=== PATIENT | female | born 1960 | race Caucasian/White ===

== ENCOUNTER 2017-05-30 08:42 | Emergency (ER) | payer OTHER ==
[~2017-05-30] VITALS: Ht 165.1 cm; Wt 86.2 kg
--- NOTE | 2017-05-30 08:42 | NUR ---
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 +NAUSEA. PLACED ON MONITOR. AWAITING MD ORDER
[2017-05-30] MEDS ORDERED: MECLIZINE HCL 25 MG TABLET ONE (09:08)
[2017-05-30] MEDS ORDERED: PROCHLORPERAZINE EDISYLATE 10 MG/2 ML VIAL ONE (09:13)
--- NOTE | 2017-05-30 09:20 | NUR ---
RAC #20 IV ACCESS BLOOD SAMPLE COLLECTED SENT TO LAB
[2017-05-30] MEDS ORDERED: IV NS 0.9% 1,000 ML BAG IV ONE (09:30)
[2017-05-30] MEDS ORDERED: MECLIZINE HCL 12.5 MG TABLET PO ONE (09:30)
[2017-05-30] MEDS ORDERED: PROCHLORPERAZINE EDISYLATE 10 MG/2 ML VIAL IVP ONE (09:30)
[2017-05-30 09:43] LABS: CALCIUM, SERUM 9.5 mg/dL (8.5-10.1); CARBON DIOXIDE 25 mmol/L (21-32); CHLORIDE 103 mmol/L (98-107); CREATININE 0.9 mg/dL (0.6-1.3); GLUCOSE 121 mg/dL (74-106); SODIUM SERUM 138 mmol/L (136-145); UREA NITROGEN, BLOOD 12 mg/dL (7-18)
[2017-05-30 09:50] LABS: BASOPHILS % (AUTO) 0.4 % (0.0-2.0); EOSINOPHILS # (AUTO) 0.1 /CMM (0.0-0.7); EOSINOPHILS % (AUTO) 1.3 % (0.0-6.0); HEMATOCRIT 42 % (33-45); HEMOGLOBIN 13.9 g/dL (11.5-14.8); LYMPHOCYTES # (AUTO) 1.4 /CMM (0.8-4.8); LYMPHOCYTES % (AUTO) 18.9 % (20.0-44.0); MEAN CORPUSCULAR HEMOGLOBIN 26 PG (26.0-33.0); MEAN CORPUSCULAR HGB CONC 33 g/dl (31.0-36.0); MEAN CORPUSCULAR VOLUME 80 fL (82-100); MONOCYTES # (AUTO) 0.4 /CMM (0.1-1.30); MONOCYTES % (AUTO) 4.9 % (2.0-12.0); NEUTROPHILS # (AUTO) 5.4 /CMM (1.8-8.9); NEUTROPHILS % (AUTO) 74.5 % (43.0-81.0); PLATELET COUNT (AUTO) 230 /CMM (150-450); RDW COEFFICIENT OF VARIATION 15.7 (11.5-15.0); RED BLOOD CELL COUNT(AUTO) 5.28 MIL/uL (4.0-5.2); WHITE BLOOD COUNT (AUTO) 7.2 K/uL (4.3-11.0)
[2017-05-30 09:52] LABS: TROPONIN I < 0.017 ng/mL (0.00-0.056)
--- NOTE | 2017-05-30 10:26 | NUR ---
VERBAL ORDER PO ATIVAN 1MG X1
[2017-05-30] MEDS ORDERED: LORAZEPAM 1 MG TABLET ONE (10:28)
[2017-05-30] MEDS ORDERED: LORAZEPAM 1 MG TABLET PO ONE (10:30)
[2017-05-30 11:17] LABS: APPEARANCE,URINE Clear (CLEAR); BILIRUBIN,URINE Negative (NEGATIVE); BLOOD, URINE Negative Ery/uL (NEGATIVE); COLOR,URINE Yellow (YELLOW); KETONES,URINE Negative (NEGATIVE); LEUKOCYTE ESTERASE ,URINE Trace (NEGATIVE); NITRITE, URINE Negative (NEGATIVE); PH,URINE 6.5 (5.0-8.0); PROTEIN,URINE Negative (NEGATIVE); UGLUCOSE Negative (NEGATIVE); UROBILINOGEN,URINE 0.2 EU/dL (0.2)
[2017-05-30 11:36] LABS: BACTERIA,URINE Few /HPF (None Seen); RBC,URINE NONE SEEN /HPF (0-2); SQUAMOUS EPITHELIAL CELL,UR Few /HPF (None Seen)
--- NOTE | 2017-05-30 11:56 | NUR ---
Patient discharged to home in stable condition. Written and verbal after care instructions given. Patient verbalizes understanding of instruction.
--- NOTE | 2017-05-30 11:56 | NUR ---
IV removed. Catheter intact and site benign. Pressure and 4x4 applied to site. No bleeding noted.
[2017-05-30 11:57] VITALS: BP 131/65
== END 2017-05-30 12:00 | disposition home or self-care (01) ==
LOC: ER 08:44
DX: R42 Dizziness and giddiness (principal); R11.2 Nausea with vomiting, unspecified; Z90.49 Acquired absence of other specified parts of digestive tract; Z98.890 Other specified postprocedural states
CPT/HCPCS: 36415; 70450; 80048; 81001; 84484; 85025; 93005; 96361; 96374; 99285; A4606; J0780; J7030; J8597; Z7610; 81000-TC

== ENCOUNTER 2018-10-30 06:44 | Emergency (ER) | payer OTHER ==
[~2018-10-30] VITALS: Ht 157.5 cm; Wt 81.6 kg
--- NOTE | 2018-10-30 07:10 | NUR ---
PT BIB SELF, C/O SOAR THROAT, VS STABLE, AOX4, ON R/A DENIES ANY SOB, AFEBRILE AT THIS TIME, PLACED ON ER BED 2, EVAL DONE ER MD GALEAS ORDERS ENTERED.
[2018-10-30] MEDS ORDERED: DEXAMETHASONE 1 MG TABLET ONE (07:27)
[2018-10-30] MEDS ORDERED: ACETAMINOPHEN 325 MG TABLET ONE (07:27)
[2018-10-30] MEDS ORDERED: DEXAMETHASONE 1 MG TABLET PO ONE (07:30)
[2018-10-30] MEDS ORDERED: ACETAMINOPHEN 325 MG TABLET PO ONE (07:30)
--- NOTE | 2018-10-30 07:42 | NUR ---
REPORT RECEIVED FROM VIRGILIO DOSS FOR LEANDRO
--- NOTE | 2018-10-30 07:43 | NUR ---
ENDORSED TO ISABEL FOR LEANDRO.
[2018-10-30] MEDS ORDERED: CLINDAMYCIN 600 MG in IV D5W 50 ML IV SCH (08:00)
--- NOTE | 2018-10-30 08:54 | NUR ---
IV removed. Catheter intact and site benign. Pressure and 4x4 applied to site. No bleeding noted.Patient discharged to home in stable condition. Written and verbal after care instructions given. Patient verbalizes understanding of instruction.
[2018-10-30 08:55] VITALS: BP 132/70
== END 2018-10-30 08:57 | disposition home or self-care (01) ==
LOC: ER 06:50
DX: J03.90 Acute tonsillitis, unspecified (principal); R42 Dizziness and giddiness; Z88.1 Allergy status to other antibiotic agents; Z90.49 Acquired absence of other specified parts of digestive tract
CPT/HCPCS: 70360; 71046; 96365; 99283; J3490; J7060; J8540

== ENCOUNTER 2019-05-31 21:57 | Emergency (ER) | payer OTHER ==
[~2019-05-31] VITALS: Ht 165.1 cm; Wt 83.9 kg
--- NOTE | 2019-05-31 22:13 | NUR ---
PATIENT BIB SON TO ER WITH C/O LEFT SIDED CHEST PAIN 02/26 THAT RADIATES TO THE LEFT ARM AND BACK SINCE THIS MORNING AROUND 1100. SHE STATES THAT THE PAIN IN THE LEFT ARM IS INTERMITTEN. AAOX4. NO SOB. NOT IN ANY DISTRESS. BREATHING EVENLY AND UNLABORED. CONNECTED TO MONITOR AND 3-LEADS.
[2019-05-31] MEDS ORDERED: ONDANSETRON HCL/PF 4 MG/2 ML VIAL ONE (22:20)
[2019-05-31] MEDS ORDERED: MORPHINE SULFATE INJ 4 MG/ML DISP.SYRIN ONE (22:21)
[2019-05-31] MEDS ORDERED: MORPHINE SULFATE INJ 2 MG/ML DISP.SYRIN IV ONE (22:30)
[2019-05-31] MEDS ORDERED: IV NS 0.9% 500 ML BAG IV ONE (22:30)
[2019-05-31] MEDS ORDERED: ONDANSETRON HCL/PF 4 MG/2 ML VIAL IVP ONE (22:30)
--- NOTE | 2019-05-31 22:30 | NUR ---
ASKED PATIENT IF SHE HAD ANY CURRENT PAIN, SHE STATES THAT SHE DOESNT HAVE CHEST PAIN, BUT HAS HEART PAIN. PATIENT STATES THAT SHE WORRIED HER VERTIGO WILL COME BACK. SHE WANTS TO TAKE THE MEDICATION LATER. DR. PARK NOTIFIED, ORDERED TO HOLD MEDICATION UNTIL NEEDED.
[2019-05-31 22:34] LABS: BASOPHILS # (AUTO) 0.1 /CMM (0.0-0.2); BASOPHILS % (AUTO) 0.9 % (0.0-2.0); EOSINOPHILS % (AUTO) 5.1 % (0.0-6.0); HEMATOCRIT 40 % (33-45); HEMOGLOBIN 12.9 g/dL (11.5-14.8); LYMPHOCYTES # (AUTO) 2.1 /CMM (0.8-4.8); LYMPHOCYTES % (AUTO) 23.6 % (20.0-44.0); MEAN CORPUSCULAR HGB CONC 33 g/dl (31.0-36.0); MEAN CORPUSCULAR VOLUME 81 fL (82-100); MONOCYTES # (AUTO) 0.6 /CMM (0.1-1.30); MONOCYTES % (AUTO) 7.1 % (2.0-12.0); NEUTROPHILS # (AUTO) 5.5 /CMM (1.8-8.9); NEUTROPHILS % (AUTO) 63.3 % (43.0-81.0); PLATELET COUNT (AUTO) 210 /CMM (150-450); WHITE BLOOD COUNT (AUTO) 8.8 K/uL (4.3-11.0)
[2019-05-31 22:47] LABS: CALCIUM, SERUM 9.6 mg/dL (8.5-10.1); CARBON DIOXIDE 28 mmol/L (21-32); CHLORIDE 107 mmol/L (98-107); CREATININE 0.9 mg/dL (0.6-1.3); GLUCOSE 131 mg/dL (74-106); POTASSIUM 3.7 mmol/L (3.5-5.1); SODIUM SERUM 141 mmol/L (136-145); UREA NITROGEN, BLOOD 20 mg/dL (7-18)
[2019-05-31] MEDS ORDERED: CT SWABBABLE VALVE TRANS SET 1 EA INFUS.SET MC ONE (22:48)
[2019-05-31] MEDS ORDERED: IOHEXOL-350 100 ML VIAL IV ONE (22:48)
[2019-05-31] MEDS ORDERED: IV NS 0.9% 250 ML IV ONE (22:49)
[2019-05-31 22:54] LABS: ALANINE AMINOTRANSFERASE 30 U/L (12-78); ALBUMIN 3.6 g/dL (3.4-5.0); ALKALINE PHOSPHATASE 74 U/L (46-116); ASPARTATE AMINOTRANSFERASE 15 U/L (15-37); B-TYPE NATRIURETIC PEPTIDE 86 PG/ML (0-125); BILIRUBIN,DIRECT 0.1 mg/dL (0.0-0.2); BILIRUBIN,TOTAL 0.2 mg/dL (0.2-1.0)
--- NOTE | 2019-05-31 22:56 | NUR ---
PATIENT SENT TO CT.
--- NOTE | 2019-05-31 23:00 | NUR ---
SON AT BEDSIDE
--- NOTE | 2019-05-31 23:09 | NUR ---
RETURNED FROM CT
--- NOTE | 2019-05-31 23:31 | NUR ---
PATIENT STATES THAT SHE HAS A 5/10 PAIN, BUT IT IS TOLERABLE. PATIENT STATES THAT SHE DOES NOT WANT ANY PAIN MEDICATIONS CURRENTLY
--- NOTE | 2019-06-01 00:30 | NUR ---
PATIENT GIVEN PRESCRIPTION AND EXPLAINED TO PATIENT AND .
--- NOTE | 2019-06-01 00:30 | NUR ---
IV removed. Catheter intact and site benign. Pressure and 4x4 applied to site. No bleeding noted. Patient discharged to home in stable condition. Written and verbal after care instructions given. Patient verbalizes understanding of instruction.
[2019-06-01 00:31] VITALS: BP 152/87
== END 2019-06-01 00:33 | disposition home or self-care (01) ==
LOC: ER 21:57
DX: R07.89 Other chest pain (principal); I10 Essential (primary) hypertension; F41.9 Anxiety disorder, unspecified; Z90.49 Acquired absence of other specified parts of digestive tract; Z88.1 Allergy status to other antibiotic agents
CPT/HCPCS: 36415; 71045; 71275; 80048; 80076; 83880; 84484; 85025; 85378; 93005 ×2; 96374; 99284; J2405; J7040; J7050; Q9967; J2270

== ENCOUNTER 2019-08-12 19:23 | Emergency (ER) | payer OTHER ==
[~2019-08-12] VITALS: Ht 165.1 cm; Wt 83.9 kg
--- NOTE | 2019-08-12 19:47 | NUR ---
PT WALKED INTO EMERGENCY ROOM FOR CHRONIC NECK AND BACK DISCOMFORT. PT ALERT AND ORIENTED X 3 WILL CONTINUE TO MONITOR
[2019-08-12] MEDS ORDERED: DIAZEPAM 5 MG TABLET ONE (19:51)
[2019-08-12] MEDS ORDERED: HYDROCODONE/APAP 5/325MG 1 EACH TABLET ONE (19:51)
[2019-08-12] MEDS ORDERED: ONDANSETRON HCL/PF 4 MG/2 ML VIAL IVP ONE (20:00)
[2019-08-12] MEDS ORDERED: DIAZEPAM 5 MG TABLET PO ONE (20:00)
[2019-08-12] MEDS ORDERED: IV NS 0.9% 1,000 ML BAG IV ONE (20:00)
[2019-08-12] MEDS ORDERED: ACETAMINOPHEN ES 500 MG TABLET PO ONE (20:00)
[2019-08-12] MEDS ORDERED: HYDROCODONE/APAP 5/325MG 1 EACH TABLET PO ONE (20:00)
[2019-08-12 20:26] VITALS: BP 170/103
== END 2019-08-12 20:26 | disposition home or self-care (01) ==
LOC: ER 19:24
DX: M62.838 Other muscle spasm (principal); I10 Essential (primary) hypertension; F41.9 Anxiety disorder, unspecified; Z90.49 Acquired absence of other specified parts of digestive tract; Z88.1 Allergy status to other antibiotic agents

== ENCOUNTER 2020-09-21 15:47 | Emergency (ER) | payer OTHER ==
[~2020-09-21] VITALS: Ht 167.6 cm; Wt 95.3 kg
[2020-09-21] MEDS ORDERED: MECLIZINE HCL 25 MG TABLET ONE (16:44)
[2020-09-21] MEDS ORDERED: LORAZEPAM INJ 2 MG/ML VIAL ONE (16:45)
[2020-09-21] MEDS ORDERED: ONDANSETRON HCL/PF 4 MG/2 ML VIAL ONE (16:45)
[2020-09-21 16:56] LABS: BASOPHILS # (AUTO) 0.1 /CMM (0.0-0.2); BASOPHILS % (AUTO) 0.8 % (0.0-2.0); EOSINOPHILS % (AUTO) 1.5 % (0.0-6.0); HEMATOCRIT 45 % (33-45); LYMPHOCYTES # (AUTO) 1.9 /CMM (0.8-4.8); LYMPHOCYTES % (AUTO) 22.6 % (20.0-44.0); MEAN CORPUSCULAR HGB CONC 33 g/dl (31.0-36.0); MEAN CORPUSCULAR VOLUME 82 fL (82-100); MONOCYTES # (AUTO) 0.6 /CMM (0.1-1.30); MONOCYTES % (AUTO) 7.5 % (2.0-12.0); NEUTROPHILS # (AUTO) 5.8 /CMM (1.8-8.9); NEUTROPHILS % (AUTO) 67.6 % (43.0-81.0); PLATELET COUNT (AUTO) 276 /CMM (150-450); RED BLOOD CELL COUNT(AUTO) 5.55 MIL/uL (4.0-5.2); WHITE BLOOD COUNT (AUTO) 8.5 K/uL (4.3-11.0)
[2020-09-21] MEDS: LORAZEPAM INJ 2 MG/ML VIAL IV ONE (17:07)
[2020-09-21] MEDS: MECLIZINE HCL 12.5 MG TABLET PO ONE (17:07)
[2020-09-21] MEDS: ONDANSETRON HCL/PF - ER 4 MG/2 ML VIAL IV ONE (17:07)
[2020-09-21] MEDS: IV NS 0.9% 1,000 ML BAG IV ONE (17:07)
--- NOTE | 2020-09-21 17:43 | NUR ---
0.5mg ativan given, wasted 1.5 mg. patient taken to head CT, started on IV fluids as ordered.
[2020-09-21 17:44] LABS: CALCIUM, SERUM 9.6 mg/dL (8.5-10.1); CREATININE 0.8 mg/dL (0.6-1.3); POTASSIUM 4.1 mmol/L (3.5-5.1)
--- NOTE | 2020-09-21 18:00 | NUR ---
Gait test done/orders-Able to ambulate with steady gait. MD notified .
[2020-09-21] MEDS ORDERED: ONDA4TAB11 PO (18:07)
[2020-09-21] MEDS ORDERED: MECL-159 PO (18:07)
[2020-09-21] MEDS ORDERED: IBUPROFEN 600 MG TABLET ONE (18:18)
[2020-09-21] MEDS: IBUPROFEN 600 MG TABLET PO ONE (18:21)
[2020-09-21 18:36] VITALS: BP 110/81
--- NOTE | 2020-09-21 18:36 | NUR ---
Patient discharged to home in stable condition. Written and verbal after care instructions given. Patient verbalizes understanding of instruction.IV removed. Catheter intact and site benign. Pressure and 4x4 applied to site. No bleeding noted.
== END 2020-09-21 18:38 | disposition home or self-care (01) ==
LOC: ER 15:56
DX: H81.392 Other peripheral vertigo, left ear (principal); R51.9 Headache, unspecified; I10 Essential (primary) hypertension; F41.9 Anxiety disorder, unspecified; Z90.49 Acquired absence of other specified parts of digestive tract; Z88.1 Allergy status to other antibiotic agents
CPT/HCPCS: 36415; 70450; 80048; 85025; 96361; 96374; 96375; 99284; J2060; J2405 ×2; J8597

== ENCOUNTER 2020-10-29 10:02 | Inpatient (IN) | payer OTHER ==
[~2020-10-29] VITALS: Ht 165.1 cm; Wt 90.3 kg
[~2020-10-29 10:02] MED LIST: MECL-159 PO; ONDA4TAB11 PO
--- NOTE | 2020-10-29 10:15 | NUR ---
PT SELF PRESENTS TO ED C/O DIZZINESS SINCE WAKING UP YESTERDAY. PT STATES TAKING MECLIZINE W/ NO RELIEF AND JUST MAKING HER SLEEPY. PT DENIES CHEST PAIN, DENIES N/V. PLACED ON MONITOR. VSS. AWAITING MD SALDANA.
--- NOTE | 2020-10-29 10:28 | NUR ---
DR HODGES AT BEDSIDE FOR EVAL.
[2020-10-29] MEDS ORDERED: MECLIZINE HCL 12.5 MG TABLET PO ONE (10:30)
[2020-10-29] MEDS ORDERED: IV NS 0.9% 1,000 ML BAG IV ONE (10:30)
--- NOTE | 2020-10-29 10:30 | NUR ---
IV LINE STARTED BLOOD DRAWN AND SENT TO LAB.
[2020-10-29] MEDS ORDERED: MECLIZINE HCL 25 MG TABLET ONE (10:33)
[2020-10-29 10:36] LABS: BASOPHILS # (AUTO) 0.1 /CMM (0.0-0.2); EOSINOPHILS % (AUTO) 0.9 % (0.0-6.0); HEMATOCRIT 44 % (33-45); HEMOGLOBIN 14.7 g/dL (11.5-14.8); LYMPHOCYTES # (AUTO) 1.3 /CMM (0.8-4.8); LYMPHOCYTES % (AUTO) 17.6 % (20.0-44.0); MEAN CORPUSCULAR HGB CONC 33 g/dl (31.0-36.0); MEAN CORPUSCULAR VOLUME 83 fL (82-100); MONOCYTES # (AUTO) 0.4 /CMM (0.1-1.30); MONOCYTES % (AUTO) 5.7 % (2.0-12.0); NEUTROPHILS # (AUTO) 5.4 /CMM (1.8-8.9); NEUTROPHILS % (AUTO) 74.8 % (43.0-81.0); PLATELET COUNT (AUTO) 222 /CMM (150-450); RED BLOOD CELL COUNT(AUTO) 5.38 MIL/uL (4.0-5.2); WHITE BLOOD COUNT (AUTO) 7.2 K/uL (4.3-11.0)
--- NOTE | 2020-10-29 10:39 | NUR ---
PT TO RADIOLOGY FOR HEAD CT SCAN VIA [facility].
[2020-10-29 10:44] LABS: CALCIUM, SERUM 9.4 mg/dL (8.5-10.1); CARBON DIOXIDE 27 mmol/L (21-32); CHLORIDE 105 mmol/L (98-107); GLUCOSE 157 mg/dL (74-106); SODIUM SERUM 143 mmol/L (136-145); UREA NITROGEN, BLOOD 17 mg/dL (7-18)
--- NOTE | 2020-10-29 10:47 | NUR ---
patient came back from ct
[2020-10-29] MEDS ORDERED: METOCLOPRAMIDE HCL 10 MG/2 ML VIAL IV ONE (11:30)
[2020-10-29] MEDS ORDERED: METOCLOPRAMIDE HCL 10 MG/2 ML VIAL ONE (11:35)
[2020-10-29] MEDS ORDERED: DIAZEPAM 5 MG/ML 2 ML DISP.SYRIN ONE (12:17)
[2020-10-29] MEDS ORDERED: NAPR-1009 PO (12:20)
[2020-10-29] MEDS ORDERED: MIRT45TA83 PO (12:20)
[2020-10-29] MEDS ORDERED: SERT-439 PO (12:20)
[2020-10-29] MEDS ORDERED: BUSP15TA3 PO (12:20)
[2020-10-29] MEDS ORDERED: BENA10TA74 PO (12:20)
[2020-10-29] MEDS ORDERED: MECL-159 PO (12:20)
[2020-10-29] MEDS ORDERED: LORA10TA7 PO (12:20)
[2020-10-29] MEDS ORDERED: DIAZEPAM 5 MG/ML 2 ML DISP.SYRIN IV ONE (12:30)
--- NOTE | 2020-10-29 13:39 | NUR ---
Pt assigned to [facility] [phone]
--- NOTE | 2020-10-29 14:20 | NUR ---
report given to anjum ho. awaiting transfer to floor.
[2020-10-29] MEDS ORDERED: Z GUARD REMEDY 2 OZ OINT TP PRN (15:00)
[2020-10-29] MEDS ORDERED: ONDANSETRON HCL/PF 4 MG/2 ML VIAL IVP PRN (15:00)
[2020-10-29] MEDS ORDERED: TEMAZEPAM 15 MG CAPSULE PO PRN (15:00)
[2020-10-29] MEDS ORDERED: MAGNESIUM HYDROXIDE 30 ML UDC PO PRN (15:00)
[2020-10-29] MEDS ORDERED: HYDROCODONE/APAP 5/325MG TABLET PO PRN (15:00)
[2020-10-29] MEDS ORDERED: MECLIZINE HCL 25 MG TABLET PO PRN (15:00)
[2020-10-29] MEDS ORDERED: ACETAMINOPHEN 325 MG TABLET PO PRN (15:00)
[2020-10-29] MEDS ORDERED: MAG HYDROX/AL HYDROX/SIMETH 30 ML UDC PO PRN (15:00)
--- NOTE | 2020-10-29 15:58 | NUR ---
wheeled patient via gurney accompanied by RN and emt in no distress. RN assigned at bedside to assume care.
--- NOTE | 2020-10-29 16:05 | NUR ---
CREDIT CARD ANALYST NOTE RECEIVED PATIENT ADMITTED FROM ER. PATIENT IS IN NO ACUTE DISTRESS. PATIENT IS ALERT ORIENTED X4, AMBULATORY V/S WNL BP 123/76, HEAR RATE 72, RESPIRATIONS 18, O2 IS 97%. PATIENT HAS IV SITE LEFT AC NAHUM 18. PATIENT IS ON TELE MONITOR READING SR 72. PATIENT IS ON ROOM AIR TOLERATING WELL. SAFETY PRECAUSTIONS ARE ON, BED IS LOCKED IN THE LOWEST POSITION WITH SIDE RAILS UP, CALL LIGHT WITHIN REACH, WILL CONTINUE TO MONITOR.
[2020-10-29] MEDS: DIAZEPAM 5 MG TABLET PO SCH (16:43)
[2020-10-29 18:00] VITALS: BP 123/76
--- NOTE | 2020-10-29 19:32 | NUR ---
TELEPHONE CLERK CLOSING NOTE PATIENT IS IN ROOM RESTING, PATIENT IS IN NO ACUTE DISTRESS. PATIENT IS ON ROOM AIR. TOLERATING WELL. NO SOB NOTED. PATIENT IS IN TELE MONITOR READING SR 76. SAFETY PRECAUTIONS ARE ON, BED IS LOCKED AND IN THE LOWEST POSITION, SIDE RAILS ARE UP, CALL LIGHT WITHIN REACH. ENDORSE PATIENT TO COMPARATIVE SOCIOLOGY PROFESSOR NURSE FOR LEANDRO.
[2020-10-29 20:00] VITALS: BP 133/66
--- NOTE | 2020-10-29 20:02 | NUR ---
MS/TELE/RN CALLED RADIOLOGY RE: CT HEAD WITH CONTRAST, SPOKE TO HERMAN, PER HERMAN IT WILL POSSIBLY BE DONE IN THE MORNING.
--- NOTE | 2020-10-29 20:29 | NUR ---
MENTAL HEALTH COUNSELOR: OPENING NOTES PATIENT IS SEEN AWAKE IN BED. PATIENT IS A/O X4. PT IS CURRENTLY ON RA AND BREATHING IS EVEN AND UNLABORED. PT IS ON A ASSEMBLER PIANO. PT'S SKIN IS INTACT. PT HAS AN IV ACCESS ON HIS LAC #18G. SAFETY MEASURES IN PLACE. SIDE RAILS RAISED. CALL LIGHT WITHIN REACH. PT WAS ENCOURAGED TO PRESS THE CALL LIGHT BUTTON IF SHE NEEDS ASSISTANCE WITH GETTING UP FROM HER BED. WILL CONTINUE TO MONITOR THE PT.
[2020-10-29] MEDS: IV NS 0.9% 1,000 ML IV PRN (21:03)
[2020-10-30] VITALS: BP 121/84
[2020-10-30 04:00] VITALS: BP 139/67
--- NOTE | 2020-10-30 06:29 | NUR ---
ALLIANCE MANAGER: CLOSING NOTES PATIENT IS SEEN AWAKE IN BED. PATIENT IS A/O X4. PT IS CURRENTLY ON RA AND BREATHING IS EVEN AND UNLABORED. PT IS ON A MEDICAL RECEPTIONIST BILLER. PT'S SKIN IS INTACT. PT HAS AN IV ACCESS ON HER LAC #18G. IV ACCESS IS INTACT AND PATENT. SAFETY MEASURES IN PLACE. 2 SIDE RAILS RAISED. BED IN LOCKED POSITION. CALL LIGHT IS WITHIN REACH. PT WAS ENCOURAGED TO PRESS THE CALL LIGHT BUTTON IF SHE NEEDS ASSISTANCE WITH GETTING UP FROM HER BED. WILL ENDORSE CARE TO DAY SHIFT NURSE.
[2020-10-30 07:03] LABS: BASOPHILS % (AUTO) 0.6 % (0.0-2.0); HEMATOCRIT 43 % (33-45); HEMOGLOBIN 13.6 g/dL (11.5-14.8); LYMPHOCYTES # (AUTO) 1.9 /CMM (0.8-4.8); LYMPHOCYTES % (AUTO) 26.8 % (20.0-44.0); MEAN CORPUSCULAR HGB CONC 32 g/dl (31.0-36.0); MEAN CORPUSCULAR VOLUME 82 fL (82-100); MONOCYTES # (AUTO) 0.4 /CMM (0.1-1.30); MONOCYTES % (AUTO) 6.4 % (2.0-12.0); NEUTROPHILS # (AUTO) 4.6 /CMM (1.8-8.9); NEUTROPHILS % (AUTO) 65.2 % (43.0-81.0); PLATELET COUNT (AUTO) 204 /CMM (150-450); WHITE BLOOD COUNT (AUTO) 7.1 K/uL (4.3-11.0)
[2020-10-30] MEDS ORDERED: PANTOPRAZOLE 40 MG TABLET.DR PO SCH (07:30)
[2020-10-30] MEDS ORDERED: CT SWABBABLE VALVE TRANS SET 1 EA INFUS.SET MC ONE (07:35)
[2020-10-30] MEDS ORDERED: IV NS 0.9% 250 ML IV ONE (07:35)
[2020-10-30] MEDS ORDERED: IOHEXOL-300 100 ML VIAL IV ONE (07:35)
[2020-10-30 08:00] VITALS: BP 153/89
[2020-10-30 08:02] LABS: CALCIUM, SERUM 8.3 mg/dL (8.5-10.1); CREATININE 0.9 mg/dL (0.6-1.3); MAGNESIUM 2.2 mg/dL (1.8-2.4); PHOSPHORUS 3.6 mg/dL (2.5-4.9); POTASSIUM 3.8 mmol/L (3.5-5.1)
[2020-10-30] MEDS: DIAZEPAM 5 MG TABLET PO SCH ×2 (08:18→17:19)
[2020-10-30 08:23] LABS: THYROID STIMULATING HORMONE 4.325 uIU/mL (0.358-3.74)
[2020-10-30] MEDS ORDERED: MECLIZINE HCL 25 MG TABLET PO PRN (09:30)
[2020-10-30] MEDS ORDERED: LORATADINE 10 MG TABLET PO PRN (09:30)
[2020-10-30] MEDS: IV NS 0.9% 1,000 ML IV PRN (14:22)
[2020-10-30 16:00] VITALS: BP 157/83
[2020-10-30] MEDS ORDERED: NAPROXEN 500 MG TABLET PO SCH (17:00)
--- NOTE | 2020-10-30 19:15 | NUR ---
RN CLOSING NOTES PATIENT DISCHARGED TO HOME AT APPRX 1850PM WITH HER HUSBANT. PATIENT IN STABLE CONDITION AND NO C/O DIZZINESS. VITALS WNL AND DOCUMENTED. PATIENT'S IV DISCONTINUED. ALL REPORTS PRINTED AND GIVEN TO PATIENT ALONG WITH EDUCATION MATERIAL. PATIENT EDUCATED TO GIVE HER ENT LABS AND IMAGING REPORTS REGARDING THYROID, LABS, CT SCANS. PATIENT LEFT THE FACILITY IN NO DISTRESS. NO C/O COUGH/CONGESTION OR SOB.
[2020-10-30] MEDS ORDERED: MIRTAZAPINE 45 MG TABLET PO SCH (22:00)
[2020-10-31] MEDS ORDERED: SERTRALINE HCL 50 MG TABLET PO SCH (09:00)
[2020-10-31] MEDS ORDERED: BENAZEPRIL HCL 10 MG TABLET PO SCH (09:00)
== END 2020-10-30 18:45 | disposition home or self-care (01) | DRG 111 ==
LOC: ER 10:04 → TELE 15:56 → MED 10-30 10:08
PROVIDERS: ADMIT Nurse Practitioner Acute Care; ATTEND Internal Medicine
DX: H81.10 Benign paroxysmal vertigo, unspecified ear (principal); K76.0 Fatty (change of) liver, not elsewhere classified; D17.5 Benign lipomatous neoplasm of intra-abdominal organs; E66.9 Obesity, unspecified; F41.9 Anxiety disorder, unspecified; I10 Essential (primary) hypertension; Z68.33 Body mass index [BMI] 33.0-33.9, adult; Z20.822 Contact with and (suspected) exposure to COVID-19; Z90.49 Acquired absence of other specified parts of digestive tract; Z88.0 Allergy status to penicillin; Z79.899 Other long term (current) drug therapy; G43.109 Migraine with aura, not intractable, without status migrainosus; E04.2 Nontoxic multinodular goiter
CPT/HCPCS: 36415; 70450-TC; 70460-TC; 76536-TC; 80048-TC; 80061-TC; 83735-TC; 84100-TC; 84443-TC; 84484-TC; 85025-TC; 87081-TC; 93307-TC; C9803; G0378; J2765; J3360; J7030; J7050; J8597; Q9967

== ENCOUNTER 2022-01-10 21:33 | Emergency (ER) | payer OTHER ==
[~2022-01-10] VITALS: Ht 165.1 cm; Wt 77.1 kg
[~2022-01-10 21:33] MED LIST changes: +BENA10TA74 PO; +BUSP15TA3 PO; +LORA10TA7 PO; +MIRT45TA83 PO; +NAPR-1009 PO; -ONDA4TAB11 PO; +SERT100T12 PO
--- NOTE | 2022-01-10 21:50 | NUR ---
BIB FAMILY C/O MIDSTERNAL NON-RADIATING C/P DESCRIBED AT PRESSURE X2 DAYS WORSTENED TODAY. PT ALSO C/O OF SOB. AWAKE AND ALERT X4 BREATHING ACCELERATED BUT UNLABORED AND GRABBING CHEST. PT PLACED ON MONITOR AND V/S WNL OXYGEN 100% RA. PER DAUGHTER AND PT, SYMPTOMS MAY BE RELATED TO ANXIETY DUE TO BIRTHDAY YESTERDAY OF A LOVE ONE THAT RECENTLY.
--- NOTE | 2022-01-10 22:00 | NUR ---
20G IV LINE ESTABLISHED AT . BLOOD DRAWN AND SENT TO LAB.
[2022-01-10 22:05] LABS: BASOPHILS # (AUTO) 0.1 K/uL (0.0-0.2); EOSINOPHILS % (AUTO) 1.3 % (0.0-6.0); HEMATOCRIT 41 % (33-45); HEMOGLOBIN 13.5 g/dL (11.5-14.8); LYMPHOCYTES # (AUTO) 2.4 K/uL (0.8-4.8); LYMPHOCYTES % (AUTO) 24.5 % (20.0-44.0); MEAN CORPUSCULAR HGB CONC 33 g/dl (31.0-36.0); MEAN CORPUSCULAR VOLUME 81 fL (82-100); MONOCYTES # (AUTO) 0.7 K/uL (0.1-1.30); MONOCYTES % (AUTO) 7.5 % (2.0-12.0); NEUTROPHILS # (AUTO) 6.4 K/uL (1.8-8.9); NEUTROPHILS % (AUTO) 65.7 % (43.0-81.0); PLATELET COUNT (AUTO) 244 K/uL (150-450); RED BLOOD CELL COUNT(AUTO) 5.04 MIL/uL (4.0-5.2); WHITE BLOOD COUNT (AUTO) 9.7 K/uL (4.3-11.0)
[2022-01-10 22:30] LABS: CALCIUM, SERUM 9.4 mg/dL (8.5-10.1); CARBON DIOXIDE 26 mmol/L (21-32); CHLORIDE 105 mmol/L (98-107); CREATININE 1.2 mg/dL (0.6-1.3); GLUCOSE 150 mg/dL (74-106); POTASSIUM 3.8 mmol/L (3.5-5.1); SODIUM SERUM 141 mmol/L (136-145); UREA NITROGEN, BLOOD 20 mg/dL (7-18)
[2022-01-10] MEDS ORDERED: LORAZEPAM 1 MG TABLET PO ONE (22:30)
[2022-01-10] MEDS ORDERED: LORAZEPAM 1 MG TABLET ONE (22:30)
--- NOTE | 2022-01-10 22:31 | NUR ---
XRAY AT BEDSIDE
[2022-01-11 01:51] VITALS: BP 155/74
--- NOTE | 2022-01-11 01:51 | NUR ---
Patient discharged to home in stable condition. Written and verbal after care instructions given. Patient verbalizes understanding of instruction. IV line removed and PT ambulatory with steady gait. picked up by son.
== END 2022-01-11 01:51 | disposition home or self-care (01) ==
LOC: ER 21:35
DX: R07.89 Other chest pain (principal); F41.9 Anxiety disorder, unspecified; I10 Essential (primary) hypertension; Z90.49 Acquired absence of other specified parts of digestive tract; Z88.0 Allergy status to penicillin; Z79.899 Other long term (current) drug therapy
CPT/HCPCS: 36415; 71045-TC; 80048-TC; 84484-TC; 85025-TC

== ENCOUNTER 2023-02-09 17:16 | Emergency (ER) | payer OTHER ==
[~2023-02-09] VITALS: Ht 172.7 cm; Wt 90.7 kg
--- NOTE | 2023-02-09 17:33 | NUR ---
pt in bed BIB family C/O of R side abd and flank pain. has taken tyelonl and ibuprofen. pain has been persistent for 10 days
[2023-02-09] MEDS ORDERED: ONDANSETRON HCL/PF 4 MG/2 ML VIAL ONE (17:52)
[2023-02-09] MEDS ORDERED: MORPHINE SULFATE INJ 4 MG/ML DISP.SYRIN ONE (17:53)
[2023-02-09] MEDS ORDERED: KETOROLAC TROMETHAMINE INJ 30 MG/ML VIAL IV ONE (18:00)
[2023-02-09] MEDS ORDERED: IV NS 0.9% 1,000 ML BAG IV ONE (18:00)
[2023-02-09] MEDS ORDERED: MORPHINE SULFATE INJ 2 MG/ML DISP.SYRIN IV ONE (18:00)
[2023-02-09] MEDS ORDERED: ONDANSETRON HCL/PF 4 MG/2 ML VIAL IVP ONE (18:00)
[2023-02-09] MEDS ORDERED: KETOROLAC TROMETHAMINE 15 MG/ML VIAL ONE (18:03)
[2023-02-09 18:12] LABS: BASOPHILS # (AUTO) 0.1 K/uL (0.0-0.2); EOSINOPHILS % (AUTO) 1.1 % (0.0-6.0); HEMATOCRIT 38 % (33-45); HEMOGLOBIN 12.4 g/dL (11.5-14.8); LYMPHOCYTES % (AUTO) 20.3 % (20.0-44.0); MEAN CORPUSCULAR HGB CONC 33 g/dl (31.0-36.0); MEAN CORPUSCULAR VOLUME 81 fL (82-100); MONOCYTES # (AUTO) 0.7 K/uL (0.1-1.30); MONOCYTES % (AUTO) 6.9 % (2.0-12.0); NEUTROPHILS # (AUTO) 7.1 K/uL (1.8-8.9); NEUTROPHILS % (AUTO) 70.7 % (43.0-81.0); PLATELET COUNT (AUTO) 232 K/uL (150-450); RED BLOOD CELL COUNT(AUTO) 4.65 MIL/uL (4.0-5.2)
--- NOTE | 2023-02-09 18:12 | NUR ---
IV started on LAC 20g. Blood collected and sent
--- NOTE | 2023-02-09 18:14 | NUR ---
pt picked up by radiology
--- NOTE | 2023-02-09 18:29 | NUR ---
gave pt IV ketolorac. given IV LAC 20g no infiltration noted
--- NOTE | 2023-02-09 18:30 | NUR ---
US at bedside
[2023-02-09 18:32] LABS: ALBUMIN 3.6 g/dL (3.4-5.0); BILIRUBIN,DIRECT 0.1 mg/dL (0.0-0.2); BILIRUBIN,TOTAL 0.3 mg/dL (0.2-1.0); CALCIUM, SERUM 9.4 mg/dL (8.5-10.1); CREATININE 1.2 mg/dL (0.6-1.3); POTASSIUM 3.9 mmol/L (3.5-5.1); TOTAL PROTEIN, SERUM 7.3 g/dL (6.4-8.2)
[2023-02-09 19:03] LABS: BILIRUBIN,URINE NEGATIVE (NEGATIVE); COLOR,URINE YELLOW (YELLOW); LEUKOCYTE ESTERASE ,URINE 1+ (NEGATIVE); NITRITE, URINE NEGATIVE (NEGATIVE); PH,URINE 5.5 (5.0-8.0); PROTEIN,URINE NEGATIVE (NEGATIVE); UGLUCOSE NEGATIVE (NEGATIVE); UROBILINOGEN,URINE 0.2 EU/dL (0.2)
[2023-02-09 19:16] LABS: BACTERIA,URINE 2+ /HPF (None Seen)
[2023-02-09] MEDS ORDERED: KETO10TA2 PO ×2 (19:25→20:06)
--- NOTE | 2023-02-09 19:39 | NUR ---
IV removed. Catheter intact and site benign. Pressure and 4x4 applied to site. No bleeding noted.
--- NOTE | 2023-02-09 19:39 | NUR ---
Patient discharged to home in stable condition. Written and verbal after care instructions given. Patient verbalizes understanding of instruction.
[2023-02-09 19:40] VITALS: BP 139/90; TEMP 98.3; O2SAT 98
== END 2023-02-09 19:41 | disposition home or self-care (01) ==
LOC: ER 17:20
DX: N20.0 Calculus of kidney (principal); I10 Essential (primary) hypertension; Z90.49 Acquired absence of other specified parts of digestive tract; Z79.899 Other long term (current) drug therapy; Z88.1 Allergy status to other antibiotic agents
CPT/HCPCS: 99285; 74176; 96374; 76705; 96361; 96375; 85025; 80048; 87086; 83690; 80076; 84703; 81001; 36415; J2405; J7030; J1885; J2270

== ENCOUNTER 2023-12-21 16:06 | Emergency (ER) | payer OTHER ==
[~2023-12-21] VITALS: Ht 165.1 cm; Wt 88.5 kg
[~2023-12-21 16:06] MED LIST changes: +KETO10TA2 PO
[2023-12-21] MEDS: IV NS 0.9% 1,000 ML BAG IV ONE (16:30)
[2023-12-21] MEDS: METOCLOPRAMIDE HCL 10 MG/2 ML VIAL IV ONE (16:32)
[2023-12-21] MEDS ORDERED: KETOROLAC TROMETHAMINE 15 MG/ML VIAL ONE (16:38)
[2023-12-21] MEDS ORDERED: METOCLOPRAMIDE HCL 10 MG/2 ML VIAL ONE (16:38)
[2023-12-21 16:55] LABS: BASOPHILS # (AUTO) 0.1 K/uL (0.0-0.2); BASOPHILS % (AUTO) 1.4 % (0.0-2.0); EOSINOPHILS # (AUTO) 0.2 K/uL (0.0-0.7); HEMATOCRIT 42 % (33-45); LYMPHOCYTES # (AUTO) 2.1 K/uL (0.8-4.8); LYMPHOCYTES % (AUTO) 27.2 % (20.0-44.0); MEAN CORPUSCULAR HEMOGLOBIN 27 PG (26.0-33.0); MEAN CORPUSCULAR HGB CONC 33 g/dl (31.0-36.0); MEAN CORPUSCULAR VOLUME 80 fL (82-100); MONOCYTES # (AUTO) 0.5 K/uL (0.1-1.30); MONOCYTES % (AUTO) 6.8 % (2.0-12.0); NEUTROPHILS # (AUTO) 4.7 K/uL (1.8-8.9); NEUTROPHILS % (AUTO) 62.6 % (43.0-81.0); PLATELET COUNT (AUTO) 246 K/uL (150-450); RED BLOOD CELL COUNT(AUTO) 5.28 MIL/uL (4.0-5.2); RED CELL DISTRIBUTION WIDTH 15.1 % (11.5-15.0); WHITE BLOOD COUNT (AUTO) 7.5 K/uL (4.3-11.0)
[2023-12-21] MEDS: KETOROLAC TROMETHAMINE 15 MG/ML VIAL IV ONE (16:55)
[2023-12-21 16:56] LABS: APPEARANCE,URINE Clear (CLEAR); BILIRUBIN,URINE Negative (NEGATIVE); BLOOD, URINE Negative Ery/uL (NEGATIVE); COLOR,URINE YELLOW (YELLOW); KETONES,URINE Negative (NEGATIVE); LEUKOCYTE ESTERASE ,URINE Small (NEGATIVE); NITRITE, URINE Negative (NEGATIVE); PH,URINE 5.5 (5.0-8.0); PROTEIN,URINE Negative (NEGATIVE); UGLUCOSE Negative (NEGATIVE); UROBILINOGEN,URINE 0.2 EU/dL (0.2)
[2023-12-21 17:03] LABS: CALCIUM, SERUM 9.4 mg/dL (8.5-10.1); CREATININE 0.9 mg/dL (0.6-1.3); POTASSIUM 3.9 mmol/L (3.5-5.1)
[2023-12-21 17:09] LABS: BILIRUBIN,DIRECT 0.1 mg/dL (0.0-0.2); BILIRUBIN,TOTAL 0.3 mg/dL (0.2-1.0)
[2023-12-21 17:16] LABS: RBC,URINE NONE SEEN /HPF (0-2)
[2023-12-21 17:17] LABS: ADD URINE CULTURE YES; BACTERIA,URINE 2+ /HPF (None Seen); WBC,URINE 21-50 /HPF (0-3)
[2023-12-21] MEDS ORDERED: IV NS 0.9% 250 ML IV ONE (17:21)
[2023-12-21] MEDS ORDERED: IOHEXOL-300 100 ML VIAL IV ONE (17:21)
[2023-12-21] MEDS ORDERED: CT SWABBABLE VALVE TRANS SET 1 EA INFUS.SET MC ONE (17:21)
[2023-12-21] MEDS ORDERED: FAMO20TA80 PO (19:10)
[2023-12-21] MEDS ORDERED: PANT40TA49 PO (19:10)
[2023-12-21 19:29] VITALS: BP 132/74; TEMP 98.2; O2SAT 99
== END 2023-12-21 19:29 | disposition home or self-care (01) ==
LOC: ER 16:24
DX: R10.31 Right lower quadrant pain (principal); M79.604 Pain in right leg; M25.511 Pain in right shoulder; I10 Essential (primary) hypertension; Z88.1 Allergy status to other antibiotic agents
CPT/HCPCS: 99285; 74177; 96374; 96361; 96375; 85025; 80048; 83690; 80076; 81001; 36415; J2765; J7050; Q9967; J1885

== ENCOUNTER 2025-06-26 20:09 | Emergency (ER) | payer MEDICAID, OTHER ==
[~2025-06-26] VITALS: Ht 162.6 cm; Wt 79.4 kg
[~2025-06-26 20:09] MED LIST changes: +FAMO20TA80 PO; +PANT40TA49 PO
[2025-06-26] MEDS: PANTOPRAZOLE 40 MG VIAL IV ONE (20:49)
[2025-06-26] MEDS: ONDANSETRON HCL/PF 4 MG/2 ML VIAL IVP ONE (20:49)
[2025-06-26] MEDS ORDERED: ONDANSETRON HCL/PF 4 MG/2 ML VIAL ONE (20:49)
[2025-06-26] MEDS ORDERED: KETOROLAC TROMETHAMINE INJ 30 MG/ML VIAL ONE (20:49)
[2025-06-26] MEDS: IV NS 0.9% 1,000 ML BAG IV ONE (20:49)
[2025-06-26] MEDS ORDERED: PANTOPRAZOLE 40 MG VIAL ONE (20:49)
[2025-06-26] MEDS: KETOROLAC TROMETHAMINE INJ 30 MG/ML VIAL IV ONE (20:50)
[2025-06-26 20:54] LABS: PLATELET COUNT (AUTO) 245 K/uL (150-450); RED BLOOD CELL COUNT(AUTO) 5.23 MIL/uL (4.0-5.2); RED CELL DISTRIBUTION WIDTH 15.5 % (11.5-15.0); WHITE BLOOD COUNT (AUTO) 9.0 K/uL (4.3-11.0)
[2025-06-26] MEDS: MORPHINE SULFATE INJ 2 MG/ML DISP.SYRIN IV ONE (21:00)
[2025-06-26 21:01] LABS: CALCIUM, SERUM 9.0 mg/dL (8.5-10.1); CREATININE 0.8 mg/dL (0.6-1.3); SODIUM SERUM 140.0 mmol/L (136-145); UREA NITROGEN, BLOOD 16.0 mg/dL (7-18)
[2025-06-26 21:07] LABS: ASPARTATE AMINOTRANSFERASE 13.0 U/L (15-37); TOTAL PROTEIN, SERUM 8.1 g/dL (6.4-8.2)
[2025-06-26] MEDS ORDERED: IV NS 0.9% 250 ML IV ONE (21:11)
[2025-06-26] MEDS ORDERED: IOHEXOL-300 100 ML VIAL IV ONE (21:11)
[2025-06-26 22:14] VITALS: BP 142/74; TEMP 98.5; O2SAT 100
== END 2025-06-26 22:15 | disposition home or self-care (01) ==
LOC: ER 20:11
DX: R10.11 Right upper quadrant pain (principal); I10 Essential (primary) hypertension; Z79.899 Other long term (current) drug therapy; Z88.0 Allergy status to penicillin; Z90.49 Acquired absence of other specified parts of digestive tract
CPT/HCPCS: 99285; 74177; 96374; 96375; 71045; 96361; 93005; 85025; 80048; 83690; 80076; 36415; J1885; J2405; J7030; J7050; J2470; Q9967